=== PATIENT | female | born 1980 | race Hispanic/Latino ===

== ENCOUNTER 2020-11-19 16:24 | Emergency (ER) | payer OTHER ==
[~2020-11-19] VITALS: Ht 170.2 cm; Wt 81.6 kg
[2020-11-19] MEDS ORDERED: NEURONTIN100 MG PO (18:12)
[2020-11-19] MEDS ORDERED: LIDOCAINE PAIN1 EACH TD (18:12)
[2020-11-19] MEDS ORDERED: KEFLEX125 MG/5 M PO (18:12)
[2020-11-19 18:37] VITALS: BP 138/78
== END 2020-11-19 18:39 | disposition home or self-care (01) ==
LOC: ER 16:49
DX: R21 Rash and other nonspecific skin eruption (principal); N61.0 Mastitis without abscess
CPT/HCPCS: 99282